=== PATIENT | male | born 1980 | race African-American/Black ===

== ENCOUNTER 2023-03-28 06:16 | Day surgery (SDC) | payer OTHER ==
[2023-03-28 06:42] LABS: #Eosinphils 0.1 thou/uL (0.0-0.7); #Monocytes 0.5 thou/uL (0.11-0.59); #Neutrophils 5.1 thou/uL (1.40-6.50); %Basophils 0.1 % (0.0-1.0); %Eosinophils 1.1 % (0.0-10.0); %Lymphocytes 23.8 % (21.0-51.0); %Monocytes 6.3 % (0.0-10.0); %Neutrophils 68.3 % (42.0-75.0); Hematocrit 46.8 % (42.0-52.0); Hemoglobin 15.2 g/dL (14.0-18.0); Mean Corpuscular HGB CONC 32.5 g/dL (32.0-36.0); Mean Corpuscular Hemoglobin 28.1 pg (27.0-31.0); Mean Corpuscular Volume 86.5 fl (78.0-98.0); Mean Platelet Volume 11.4 fL (7.4-10.4); Platelet Count 165 10x3/uL (130-400); RBC Distribution Width 13.2 % (11.5-14.5); Red Blood Cell (RBC) Count 5.41 mill/uL (4.70-6.10); White Blood Cell (WBC) Count 7.5 10x3/uL (4.8-10.8)
[2023-03-28 06:56] LABS: INR-International Normal Ratio 0.9; Prothrombin Time 12.7 sec (12.0-14.7)
[2023-03-28 06:57] LABS: PTT 29.1 sec (22.9-36.1)
[2023-03-28 07:05] LABS: ALT (SGPT) 31 U/L (8-55); AST (SGOT) 25 U/L (5-34); Albumin 4.5 g/dL (3.5-5.0); Alcohol Less than 10.0 mg/dL (Less than 10); Alkaline Phosphatase 67 U/L (40-110); Anion Gap 11 mmol/L (10-20); BUN (Urea Nitrogen) 16 mg/dL (8.9-20.6); Bilirubin, Total 0.6 mg/dL (0.2-1.2); Calc. Creatinine Clearance 0 mL/min (70-130); Calcium 9.7 mg/dL (7.8-10.44); Carbon Dioxide 23 mmol/L (22-29); Chloride 105 mmol/L (98-107); Estimated GFR 70; Globulin 3.5 g/dL (2.4-3.5); Glucose 119 mg/dL (70-105); Potassium 3.9 mmol/L (3.5-5.1); Sodium 135 mmol/L (136-145)
[2023-03-28] MEDS ORDERED: Boostrix 0.5 ML (Tdap) VIAL (>/=7 yrs of age) ONE (08:06)
[2023-03-28] MEDS ORDERED: CEFAZOLIN 2 GM VIAL ONE (08:06)
[2023-03-28] MEDS ORDERED: Morphine 4 MG/ML VIAL ONE ×2 (08:06→17:28)
[2023-03-28] MEDS ORDERED: Iopamidol-370 76% 500 ML MDV (1 ML CHARGE) ONE (09:55)
[2023-03-28] MEDS ORDERED: Ketorolac Tromethamine 30 MG/ML VIAL ONE ×2 (17:27→20:37)
[2023-03-28] MEDS ORDERED: fentaNYL PF 100 MCG/2 ML SYRINGE ONE (20:13)
[2023-03-28] MEDS ORDERED: Dexmedetomidine 200 MCG/2 ML VIAL ONE (20:14)
[2023-03-28] MEDS ORDERED: PROPOFOL 200 MG/20 ML VIAL ONE (20:37)
[2023-03-28] MEDS ORDERED: Rocuronium Bromide 10 MG/ML (10ML VIAL) ONE (20:37)
[2023-03-28] MEDS ORDERED: NEOSTIGMINE 3 MG/3 ML SYR 3 MG/3 ML SYRINGE ONE (20:37)
[2023-03-28] MEDS ORDERED: Lidocaine 1% PF 5 ML VIAL ONE (20:37)
[2023-03-28] MEDS ORDERED: Glycopyrrolate 0.2 MG/ML 5 ML SYRINGE ONE (20:37)
[2023-03-28] MEDS ORDERED: Dexamethasone 20 MG/5 ML VIAL ONE (20:37)
[2023-03-28] MEDS ORDERED: Ondansetron PF 4 MG/2 ML Vial ONE (20:37)
[2023-03-28] MEDS ORDERED: Bacitracin Zinc Ointment 30 gm TUBE ONE (21:05)
== END 2023-03-28 22:55 | disposition home or self-care (01) ==
LOC: ERS 06:16 → SDC 12:31
PROVIDERS: ATTEND Orthopaedic Surgery Sports Medicine
PROC: 0HBEXZZ Excision of Left Lower Arm Skin, External Approach (ICD-10-PCS; principal; 2023-03-28)
DX: S49.92XA Unspecified injury of left shoulder and upper arm, initial encounter (principal); V89.2XXA Person injured in unspecified motor-vehicle accident, traffic, initial encounter
CPT/HCPCS: 12011; 36415; 70450; 70486; 71045; 71260; 72125; 74177; 80053; 80307; 85025; 85610; 85730; 86850; 86900; 86901; 90471; 90715; 93005; 96365; 96366; 96375; G0390; J1100; J1885; J2270; J2405; J2704; Q9967